=== PATIENT | female | born 1990 | race Caucasian/White ===

== ENCOUNTER 2022-04-24 08:00 | Outpatient (CLI) | payer OTHER ==
[2022-04-24 22:36] LABS: CHLAMYDIA TRACHOMATIS DNA NEGATIVE (NEGATIVE); NEISSERIA GONORRHOEAE DNA NEGATIVE (NEGATIVE); TRICHOMONAS VAGINALIS DNA NEGATIVE (NEGATIVE)
[2022-04-26 08:08] LABS: HIV SCREEN 4TH GENERATION Non Reactive (Non Reactive)
[2022-04-26 10:08] LABS: HCV AB <0.1 s/co ratio (0.0-0.9)
[2022-04-28 03:08] LABS: RPR Non Reactive (Non Reactive)
== END 2022-04-24 23:59 | disposition home or self-care (01) ==
LOC: LAB.N 08:00
PROVIDERS: ATTEND Registered Nurse
DX: Z11.3 Encounter for screening for infections with a predominantly sexual mode of transmission (principal)
CPT/HCPCS: 36415; 86592; 86803; 87389; 87491; 87591; 87661

== ENCOUNTER 2022-11-20 08:00 | Outpatient (CLI) | payer OTHER ==
[2022-11-20 21:00] LABS: CHLAMYDIA TRACHOMATIS DNA NEGATIVE (NEGATIVE); NEISSERIA GONORRHOEAE DNA NEGATIVE (NEGATIVE); TRICHOMONAS VAGINALIS DNA NEGATIVE (NEGATIVE)
[2022-11-22 16:08] LABS: HSV 1 IGG TYPE SPEC <0.91 index (0.00-0.90); HSV 2 IGG TYPE SPEC <0.91 index (0.00-0.90)
[2022-11-23 03:09] LABS: HCV AB Non Reactive (Non Reactive)
[2022-11-23 05:12] LABS: RPR Non Reactive (Non Reactive)
[2022-11-23 06:10] LABS: HIV SCREEN 4TH GENERATION Non Reactive (Non Reactive)
== END 2022-11-20 23:59 | disposition home or self-care (01) ==
LOC: LAB.N 08:00
PROVIDERS: ATTEND Family Medicine
DX: Z11.3 Encounter for screening for infections with a predominantly sexual mode of transmission (principal)
CPT/HCPCS: 36415; 86592; 86695; 86696; 86803; 87389; 87491; 87591; 87661